=== PATIENT | female | born 1990 | race Caucasian/White ===

== ENCOUNTER 2018-06-05 14:04 | Emergency (ER) | payer OTHER ==
[~2018-06-05] VITALS: Ht 170.2 cm; Wt 61.2 kg
--- OUTSIDE RECORDS SUMMARY | 2018-06-05 14:08 | XMS ---
PreManage Notification: PIERO TATE [employer] Events No recent Security Events currently on file CRITERIA MET - [facility] - 2 Visits in 30 Days CARE PROVIDERS There are no care providers on record at this time. Raymond has no Care Guidelines for this patient. [place] VISIT COUNT (12 MO.) 1 [facility] 1 [facility] 1 [facility] TOTAL 3 NOTE: Visits indicate total known visits. ED/C VISIT TRACKING (12 MO.) [facility] COMPLAINT: - SOB 05/30/2018 10:19 [facility] [place] TYPE: Emergency DIAGNOSES: - Acute embolism and thrombosis of deep veins of right upper extremity - Referral - "I have a possible blood clot in my right arm" - Arm Swelling [facility] DIAGNOSES: - Arm Pain - Acute embolism and thrombosis of right axillary vein - rt arm swelling INPATIENT VISIT TRACKING (12 MO.) 11/05/2017 19:19 [facility] TYPE: General Medicine DIAGNOSES: - Right arm DVT - Acute embolism and thrombosis of deep veins of right upper extremity - Pain, unspecified [email or web address]
[2018-06-05] MEDS ORDERED: ESCITALOPRAM OXA5 MG PO (14:19)
[2018-06-05] MEDS ORDERED: ELIQUIS5 MG PO (14:19)
[2018-06-05] MEDS ORDERED: ADAPALENE45 G2 TOP (14:20)
[2018-06-05] MEDS ORDERED: VENTOLIN HFA18 GM INH (15:58)
--- NOTE | 2018-06-06 00:55 | EKG ---
[facility] [address] [facility] [place], [place] [address] Signed Normal sinus rhythm Rightward axis Borderline ECG No previous ECGs available Confirmed by ANGIE COLÓN MD ([id number] on 06/06/2018 12:55:39 AM Electronically Signed By: ANGIE COLÓN MD 06/06/18 0055 PATIENT NAME: PIERO TATE Electrocardiogram DATE OF : [birth year] PHYSICIAN: ANGIE COLÓN MD REPORT #: [id number] REPORT IS CONFIDENTIAL AND NOT TO BE RELEASED WITHOUT AUTHORIZATION
== END 2018-06-05 16:04 | disposition home or self-care (01) ==
LOC: ED 14:04
DX: R06.02 Shortness of breath (principal); Z79.899 Other long term (current) drug therapy
CPT/HCPCS: 36415; 71046; 80048; 84484; 84703; 85025; 85379; 85610; 85730; 93005; 93010; 94640; 99285-25